=== PATIENT | male | born 1965 | race African-American/Black ===

== ENCOUNTER 2017-11-26 19:20 | Inpatient (IN) | payer OTHER ==
[2017-11-26] MEDS ORDERED: PENDING SANTYL ORDER FOR WOUND CARE XX (20:30)
[2017-11-26] MEDS ORDERED: ACETAMINOPHEN 325 MG TAB PO (22:00)
[2017-11-26] MEDS ORDERED: HYDROCODONE/APAP (5/325) TAB PO (22:00)
[2017-11-26] MEDS ORDERED: hydrALAzine 20 MG INJ IV (22:00)
[2017-11-26] MEDS: GABAPENTIN 300 MG CAP PO (22:34)
[2017-11-26] MEDS: TAMSULOSIN (SR) 0.4 MG CAP PO (22:34)
[2017-11-26] MEDS: ATORVASTATIN 80 MG TAB PO (22:35)
[2017-11-26] MEDS: INSULIN DETEMIR [LEVEMIR] 3ML CART SC (22:49)
[2017-11-26] MEDS: ACCU-CHEK XX (22:50)
[2017-11-26] MEDS: Insulin NOVOLOG SS MODERATE Algorithm (SS with meals and bedtime) SC (22:50)
[2017-11-27] MEDS: ACCUCHECK AT 2AM (Patients on SS coverage) XX (02:00)
[2017-11-27] MEDS ORDERED: MAGNESIUM HYDROXIDE 30ML CUP PO (06:00)
[2017-11-27] MEDS: PANTOPRAZOLE (EC) 40 MG TAB PO (06:39)
[2017-11-27] MEDS: ACCU-CHEK XX ×4 (07:00→22:00)
[2017-11-27 07:41] LABS: ADD UMIC YES; UR ASCORBIC ACID NEGATIVE (NEGATIVE); UR BACTERIA FEW /HPF (NONE SEEN); UR BILIRUBIN (Dip) NEGATIVE (NEGATIVE); UR BLOOD (Dip) NEGATIVE (NEGATIVE); UR CLARITY CLEAR (CLEAR); UR COLOR YELLOW (YELLOW); UR GLUCOSE (Dip) 3+ mg/dL (NEGATIVE); UR KETONES (Dip) NEGATIVE (NEGATIVE); UR LEUKOCYTE ESTERASE (Dip) NEGATIVE Leu/ul (NEGATIVE); UR NITRITE (Dip) NEGATIVE (NEGATIVE); UR RBC 1 /HPF (0-5); UR SPECIFIC GRAVITY (Dip) 1.014 (1.003-1.030); UR TOTAL PROTEIN (Dip) 3+ mg/dl (NEGATIVE); UR UROBILINOGEN (Dip) NEGATIVE (NEGATIVE); UR WBC 5 /HPF (0-5)
[2017-11-27 07:54] LABS: ADD MAN DIFF? NO
[2017-11-27 08:08] LABS: WHITE BLOOD COUNT 8.4 10^3/ul (4.8-10.8)
[2017-11-27 08:08] LABS: BASOPHILS % 0.4 % (0.0-2.0); EOSINOPHILS # 0.4 10^3/ul (0.0-0.5); EOSINOPHILS % 4.4 % (0.0-7.0); HEMATOCRIT 23.7 % (42.0-52.0); LYMPHOCYTES # 2.1 10^3/ul (0.8-2.9); LYMPHOCYTES % 24.7 % (15.0-51.0); MEAN CORPUSCULAR HEMOGLOBIN 28.7 pg (29.0-33.0); MEAN CORPUSCULAR HGB CONC 33.8 g/dl (32.0-37.0); MEAN CORPUSCULAR VOLUME 84.9 fl (82.0-101.0); MEAN PLATELET VOLUME 11.1 fl (7.4-10.4); MONOCYTE # 0.7 10^3/ul (0.3-0.9); MONOCYTES % 8.3 % (0.0-11.0); NEUTROPHIL # 5.2 10^3/ul (1.6-7.5); NEUTROPHILS % 61.7 % (39.0-77.0); PLATELET COUNT 236 10^3/UL (140-415); RED BLOOD COUNT 2.79 10^6/ul (4.70-6.10); RED CELL DISTRIBUTION WIDTH 13.5 % (11.5-14.5)
[2017-11-27 08:34] LABS: ALANINE AMINOTRANSFERASE 23 IU/L (13-69); ALKALINE PHOSPHATASE 67 IU/L (42-121); ANION GAP 16 (8-16); ASPARTATE AMINO TRANSFERASE 13 IU/L (15-46); BILIRUBIN,INDIRECT 0.7 mg/dl (0-1.1); BILIRUBIN,TOTAL 0.7 mg/dl (0.2-1.3); BLOOD UREA NITROGEN 59 mg/dl (7-20); CALCIUM 9.5 mg/dl (8.4-10.2); CARBON DIOXIDE 28 mmol/L (21-31); CHLORIDE 102 mmol/L (97-110); CREATININE 9.77 mg/dl (0.61-1.24); GLUCOSE 235 mg/dl (70-220); POTASSIUM 3.7 mmol/L (3.5-5.1); SODIUM 142 mmol/L (135-144); TOTAL PROTEIN 6.3 g/dl (6.1-8.1)
[2017-11-27] MEDS: LINAGLIPTIN 5 MG TABLET PO (08:40)
[2017-11-27] MEDS: ASPIRIN 81 MG TAB PO (08:41)
[2017-11-27] MEDS: GABAPENTIN 300 MG CAP PO ×3 (08:41→20:57)
[2017-11-27] MEDS: AMLODIPINE 5 MG TAB PO (08:41)
[2017-11-27] MEDS: CLOPIDOGREL 75 MG TAB PO (08:41)
[2017-11-27] MEDS: NOVOLOG PEN INSULIN ASPART (BOLUS with meals) SC ×3 (09:34→19:31)
[2017-11-27] MEDS: Insulin NOVOLOG SS MODERATE Algorithm (SS with meals and bedtime) SC ×4 (09:36→22:04)
[2017-11-27] MEDS: DOCUSATE SODIUM 100 MG CAP PO ×2 (09:37→20:57)
[2017-11-27] MEDS: SENNA TAB PO (20:57)
[2017-11-27] MEDS: TAMSULOSIN (SR) 0.4 MG CAP PO (20:57)
[2017-11-27] MEDS: ATORVASTATIN 80 MG TAB PO (20:57)
[2017-11-27] MEDS: INSULIN DETEMIR [LEVEMIR] 3ML CART SC (22:06)
[2017-11-28] MEDS: ACCUCHECK AT 2AM (Patients on SS coverage) XX (02:00)
[2017-11-28 02:01] LABS: HEPATITIS B SURFACE ANTIGEN NEGATIVE (NEGATIVE)
[2017-11-28 02:21] LABS: HEPATITIS B SURFACE ANTIBODY NEGATIVE (NEGATIVE)
[2017-11-28] MEDS: HEPARIN 1000 UNITS/ML 10 ML INJ CATHETER (02:42)
[2017-11-28] MEDS: PANTOPRAZOLE (EC) 40 MG TAB PO (06:51)
[2017-11-28] MEDS: ACCU-CHEK XX ×4 (07:05→21:24)
[2017-11-28] MEDS: Insulin NOVOLOG SS MODERATE Algorithm (SS with meals and bedtime) SC ×4 (07:35→21:00)
[2017-11-28] MEDS: NOVOLOG PEN INSULIN ASPART (BOLUS with meals) SC ×3 (08:35→17:49)
[2017-11-28] MEDS: GABAPENTIN 300 MG CAP PO ×3 (08:41→21:04)
[2017-11-28] MEDS: AMLODIPINE 5 MG TAB PO (08:41)
[2017-11-28] MEDS: CLOPIDOGREL 75 MG TAB PO (08:43)
[2017-11-28] MEDS: DOCUSATE SODIUM 100 MG CAP PO ×2 (08:43→21:04)
[2017-11-28] MEDS: ASPIRIN 81 MG TAB PO (08:43)
[2017-11-28] MEDS: LINAGLIPTIN 5 MG TABLET PO (08:43)
[2017-11-28] MEDS: INSULIN DETEMIR [LEVEMIR] 3ML CART SC (20:58)
[2017-11-28] MEDS: TAMSULOSIN (SR) 0.4 MG CAP PO (21:04)
[2017-11-28] MEDS: SENNA TAB PO (21:04)
[2017-11-28] MEDS: ATORVASTATIN 80 MG TAB PO (21:05)
[2017-11-29] MEDS: ACCUCHECK AT 2AM (Patients on SS coverage) XX (02:00)
[2017-11-29] MEDS: PANTOPRAZOLE (EC) 40 MG TAB PO (06:21)
[2017-11-29] MEDS: Insulin NOVOLOG SS MODERATE Algorithm (SS with meals and bedtime) SC (07:35)
[2017-11-29] MEDS: ACCU-CHEK XX ×4 (07:56→21:00)
[2017-11-29] MEDS: NOVOLOG PEN INSULIN ASPART (BOLUS with meals) SC (08:00)
[2017-11-29] MEDS: DOCUSATE SODIUM 100 MG CAP PO ×3 (08:01→21:28)
[2017-11-29] MEDS: CLOPIDOGREL 75 MG TAB PO (08:02)
[2017-11-29] MEDS: ASPIRIN 81 MG TAB PO (08:02)
[2017-11-29] MEDS: LINAGLIPTIN 5 MG TABLET PO (08:02)
[2017-11-29] MEDS: GABAPENTIN 300 MG CAP PO ×4 (08:02→21:28)
[2017-11-29] MEDS: AMLODIPINE 5 MG TAB PO (08:59)
[2017-11-29] MEDS ORDERED: GLUCOSE GEL 15 GRAM TUBE BUCCAL (11:00)
[2017-11-29] MEDS ORDERED: GLUCOSE GEL 15 GRAM TUBE PO ×2 (11:00)
[2017-11-29] MEDS ORDERED: DEXTROSE 50% 50 ML SYRINGE IV ×2 (11:00)
[2017-11-29] MEDS ORDERED: GLUCAGON 1 MG INJ IM (11:00)
[2017-11-29] MEDS: INSULIN ASPART [NOVOLOG] 3 ML PEN SC ×8 (12:00→21:00)
[2017-11-29] MEDS ORDERED: INSULIN ASPART [NOVOLOG] 3 ML PEN SC ×2 (12:00)
[2017-11-29 12:22] LABS: HEMOGLOBIN A1C 9.2 % (0-5.9)
[2017-11-29] MEDS: ATORVASTATIN 80 MG TAB PO ×2 (21:00→21:31)
[2017-11-29] MEDS: SENNA TAB PO ×2 (21:00→21:28)
[2017-11-29] MEDS: TAMSULOSIN (SR) 0.4 MG CAP PO ×2 (21:00→21:28)
[2017-11-29] MEDS: HEPARIN 5,000 UNIT/0.5 ML VIAL SC (21:34)
[2017-11-29] MEDS: INSULIN DETEMIR [LEVEMIR] 3ML CART SC (21:37)
[2017-11-30] MEDS ORDERED: ACCU-CHEK XX (02:00)
[2017-11-30] MEDS: ACCUCHECK AT 2AM (Patients on SS coverage) XX (02:00)
[2017-11-30] MEDS: PANTOPRAZOLE (EC) 40 MG TAB PO (06:05)
[2017-11-30] MEDS: ACCU-CHEK XX ×4 (07:05→21:00)
[2017-11-30] MEDS: INSULIN ASPART [NOVOLOG] 3 ML PEN SC ×7 (07:35→21:58)
[2017-11-30] MEDS: HEPARIN 5,000 UNIT/0.5 ML VIAL SC ×2 (08:15→21:59)
[2017-11-30] MEDS: CLOPIDOGREL 75 MG TAB PO (08:16)
[2017-11-30] MEDS: ASPIRIN 81 MG TAB PO (08:17)
[2017-11-30] MEDS: LINAGLIPTIN 5 MG TABLET PO (08:17)
[2017-11-30] MEDS: GABAPENTIN 300 MG CAP PO (08:17)
[2017-11-30] MEDS: DOCUSATE SODIUM 100 MG CAP PO ×2 (08:17→21:48)
[2017-11-30] MEDS: AMLODIPINE 5 MG TAB PO (08:17)
[2017-11-30 09:13] LABS: CHOL/HDL RATIO 7.1 RATIO; HDL CHOLESTEROL 29 mg/dl (28-71); LDL CHOLESTEROL,CALCULATED 145 mg/dl; TRIGLYCERIDES 171 mg/dl (0-149)
[2017-11-30 09:13] LABS: CHOLESTEROL 208 mg/dl (100-200)
[2017-11-30 09:16] LABS: ANION GAP 21 (8-16); BLOOD UREA NITROGEN 79 mg/dl (7-20); CALCIUM 10.7 mg/dl (8.4-10.2); CARBON DIOXIDE 24 mmol/L (21-31); CHLORIDE 102 mmol/L (97-110); CREATININE 10.54 mg/dl (0.61-1.24); GLUCOSE 110 mg/dl (70-220); POTASSIUM 4.5 mmol/L (3.5-5.1); SODIUM 142 mmol/L (135-144)
[2017-11-30 09:18] LABS: PHOSPHORUS 8.6 mg/dl (2.5-4.9)
[2017-11-30 09:18] LABS: MAGNESIUM 2.1 mg/dl (1.7-2.5)
[2017-11-30 10:28] LABS: HEMOGLOBIN A1C 9.2 % (0-5.9)
[2017-11-30] MEDS ORDERED: HYDROCODONE/APAP (5/325) TAB PO (14:00)
[2017-11-30] MEDS: ALBUMIN HUMAN 25% 100 ML IV (18:42)
[2017-11-30] MEDS ORDERED: GABAPENTIN 100 MG CAP PO (21:00)
[2017-11-30] MEDS: SENNA TAB PO (21:48)
[2017-11-30] MEDS: TAMSULOSIN (SR) 0.4 MG CAP PO (21:48)
[2017-11-30] MEDS: ATORVASTATIN 80 MG TAB PO (21:48)
[2017-11-30] MEDS: INSULIN DETEMIR [LEVEMIR] 3ML CART SC (21:59)
[2017-12-01] MEDS: ACCUCHECK AT 2AM (Patients on SS coverage) XX (02:00)
[2017-12-01] MEDS: PANTOPRAZOLE (EC) 40 MG TAB PO (06:32)
[2017-12-01 06:33] LABS: ADD MAN DIFF? NO
[2017-12-01 06:42] LABS: WHITE BLOOD COUNT 7.2 10^3/ul (4.8-10.8)
[2017-12-01 06:42] LABS: BASOPHILS % 0.6 % (0.0-2.0); EOSINOPHILS # 0.3 10^3/ul (0.0-0.5); EOSINOPHILS % 4.7 % (0.0-7.0); HEMATOCRIT 21.5 % (42.0-52.0); HEMOGLOBIN 7.2 g/dl (14.0-18.0); LYMPHOCYTES # 1.5 10^3/ul (0.8-2.9); LYMPHOCYTES % 20.7 % (15.0-51.0); MEAN CORPUSCULAR HEMOGLOBIN 28.9 pg (29.0-33.0); MEAN CORPUSCULAR HGB CONC 33.5 g/dl (32.0-37.0); MEAN CORPUSCULAR VOLUME 86.3 fl (82.0-101.0); MEAN PLATELET VOLUME 10.9 fl (7.4-10.4); MONOCYTE # 0.6 10^3/ul (0.3-0.9); MONOCYTES % 8.9 % (0.0-11.0); NEUTROPHIL # 4.7 10^3/ul (1.6-7.5); NEUTROPHILS % 64.8 % (39.0-77.0); PLATELET COUNT 247 10^3/UL (140-415); RED BLOOD COUNT 2.49 10^6/ul (4.70-6.10); RED CELL DISTRIBUTION WIDTH 14.2 % (11.5-14.5)
[2017-12-01] MEDS: ACCU-CHEK XX ×4 (07:05→21:01)
[2017-12-01 07:17] LABS: ANION GAP 14 (8-16); BLOOD UREA NITROGEN 54 mg/dl (7-20); CALCIUM 9.8 mg/dl (8.4-10.2); CARBON DIOXIDE 29 mmol/L (21-31); CHLORIDE 103 mmol/L (97-110); GLUCOSE 142 mg/dl (70-220); POTASSIUM 4.3 mmol/L (3.5-5.1); SODIUM 142 mmol/L (135-144)
[2017-12-01 07:19] LABS: MAGNESIUM 1.9 mg/dl (1.7-2.5)
[2017-12-01 07:19] LABS: PHOSPHORUS 6.7 mg/dl (2.5-4.9)
[2017-12-01] MEDS: INSULIN ASPART [NOVOLOG] 3 ML PEN SC ×7 (08:44→21:00)
[2017-12-01] MEDS: HEPARIN 5,000 UNIT/0.5 ML VIAL SC ×2 (09:45→21:00)
[2017-12-01] MEDS: DOCUSATE SODIUM 100 MG CAP PO ×2 (09:46→20:42)
[2017-12-01] MEDS: LINAGLIPTIN 5 MG TABLET PO (09:46)
[2017-12-01] MEDS: ASPIRIN 81 MG TAB PO (09:47)
[2017-12-01] MEDS: AMLODIPINE 5 MG TAB PO (09:47)
[2017-12-01] MEDS: CLOPIDOGREL 75 MG TAB PO (09:48)
[2017-12-01 11:22] LABS: IRON 37 ug/dl (35-150)
[2017-12-01 11:31] LABS: % IRON SATURATION 19 % SAT (22-52); TOTAL IRON BINDING CAPACITY 191 ug/dl (241-421)
[2017-12-01] MEDS: EPOETIN 4000 UNITS/1 ML INJ (ESRD) SC (16:51)
[2017-12-01] MEDS: SENNA TAB PO (20:42)
[2017-12-01] MEDS: TAMSULOSIN (SR) 0.4 MG CAP PO (20:42)
[2017-12-01] MEDS: ATORVASTATIN 80 MG TAB PO (20:44)
[2017-12-01] MEDS: INSULIN DETEMIR [LEVEMIR] 3ML CART SC (20:59)
[2017-12-02] MEDS: ACCUCHECK AT 2AM (Patients on SS coverage) XX (02:00)
[2017-12-02] MEDS: PANTOPRAZOLE (EC) 40 MG TAB PO (06:30)
[2017-12-02] MEDS: ACCU-CHEK XX ×4 (07:05→21:00)
[2017-12-02] MEDS: INSULIN ASPART [NOVOLOG] 3 ML PEN SC ×7 (07:35→23:00)
[2017-12-02] MEDS: ASPIRIN 81 MG TAB PO (08:07)
[2017-12-02] MEDS: HEPARIN 5,000 UNIT/0.5 ML VIAL SC ×2 (09:00→23:38)
[2017-12-02] MEDS: LINAGLIPTIN 5 MG TABLET PO (09:00)
[2017-12-02] MEDS: DOCUSATE SODIUM 100 MG CAP PO ×2 (09:00→23:21)
[2017-12-02] MEDS: AMLODIPINE 5 MG TAB PO (09:00)
[2017-12-02] MEDS: CLOPIDOGREL 75 MG TAB PO ×2 (09:00→13:04)
[2017-12-02] MEDS: ALBUMIN HUMAN 25% 100 ML IV (19:50)
[2017-12-02] MEDS: HEPARIN 1000 UNITS/ML 10 ML INJ CATHETER (22:38)
[2017-12-02] MEDS: ATORVASTATIN 80 MG TAB PO (23:21)
[2017-12-02] MEDS: SENNA TAB PO (23:21)
[2017-12-02] MEDS: TAMSULOSIN (SR) 0.4 MG CAP PO (23:21)
[2017-12-02] MEDS: INSULIN DETEMIR [LEVEMIR] 3ML CART SC (23:27)
[2017-12-02] MEDS: EPOETIN 4000 UNITS/1 ML INJ (ESRD) SC (23:40)
[2017-12-03] MEDS: ACCUCHECK AT 2AM (Patients on SS coverage) XX (02:00)
[2017-12-03] MEDS: PANTOPRAZOLE (EC) 40 MG TAB PO (07:00)
[2017-12-03] MEDS: ACCU-CHEK XX ×4 (07:05→22:15)
[2017-12-03] MEDS: INSULIN ASPART [NOVOLOG] 3 ML PEN SC ×8 (08:19→22:15)
[2017-12-03] MEDS: CLOPIDOGREL 75 MG TAB PO (08:36)
[2017-12-03] MEDS: ASPIRIN 81 MG TAB PO (08:37)
[2017-12-03] MEDS: LINAGLIPTIN 5 MG TABLET PO (08:39)
[2017-12-03] MEDS: DOCUSATE SODIUM 100 MG CAP PO ×2 (08:39→21:00)
[2017-12-03] MEDS: AMLODIPINE 5 MG TAB PO (08:39)
[2017-12-03] MEDS: HEPARIN 5,000 UNIT/0.5 ML VIAL SC ×2 (08:40→21:00)
[2017-12-03] MEDS: SENNA TAB PO (21:00)
[2017-12-03] MEDS: ATORVASTATIN 80 MG TAB PO (21:00)
[2017-12-03] MEDS: TAMSULOSIN (SR) 0.4 MG CAP PO (21:00)
[2017-12-03] MEDS: INSULIN DETEMIR [LEVEMIR] 3ML CART SC (22:15)
[2017-12-04] MEDS: ACCUCHECK AT 2AM (Patients on SS coverage) XX (02:00)
[2017-12-04] MEDS: INSULIN ASPART [NOVOLOG] 3 ML PEN SC ×7 (07:35→22:43)
[2017-12-04] MEDS: ACCU-CHEK XX (07:50)
[2017-12-04] MEDS: PANTOPRAZOLE (EC) 40 MG TAB PO (07:55)
[2017-12-04] MEDS: ASPIRIN 81 MG TAB PO (07:55)
[2017-12-04] MEDS: DOCUSATE SODIUM 100 MG CAP PO ×2 (08:29→22:43)
[2017-12-04] MEDS: LINAGLIPTIN 5 MG TABLET PO (08:29)
[2017-12-04] MEDS: AMLODIPINE 5 MG TAB PO (08:29)
[2017-12-04] MEDS: CLOPIDOGREL 75 MG TAB PO (08:30)
[2017-12-04] MEDS: HEPARIN 5,000 UNIT/0.5 ML VIAL SC ×2 (08:39→22:43)
[2017-12-04] MEDS: EPOETIN 4000 UNITS/1 ML INJ (ESRD) SC (17:47)
[2017-12-04] MEDS: HEPARIN 1000 UNITS/ML 10 ML INJ CATHETER (22:08)
[2017-12-04] MEDS: TAMSULOSIN (SR) 0.4 MG CAP PO (22:43)
[2017-12-04] MEDS: SENNA TAB PO (22:43)
[2017-12-04] MEDS: ATORVASTATIN 80 MG TAB PO (22:43)
[2017-12-04] MEDS: INSULIN DETEMIR [LEVEMIR] 3ML CART SC (22:43)
[2017-12-05] MEDS: PANTOPRAZOLE (EC) 40 MG TAB PO (07:00)
[2017-12-05] MEDS: INSULIN ASPART [NOVOLOG] 3 ML PEN SC ×7 (07:35→20:21)
[2017-12-05] MEDS: DOCUSATE SODIUM 100 MG CAP PO ×2 (08:58→20:21)
[2017-12-05] MEDS: ASPIRIN 81 MG TAB PO (08:58)
[2017-12-05] MEDS: AMLODIPINE 5 MG TAB PO (08:58)
[2017-12-05] MEDS: LINAGLIPTIN 5 MG TABLET PO (08:59)
[2017-12-05] MEDS: CLOPIDOGREL 75 MG TAB PO (08:59)
[2017-12-05] MEDS: HEPARIN 5,000 UNIT/0.5 ML VIAL SC ×2 (08:59→20:30)
[2017-12-05] MEDS: SENNA TAB PO (20:21)
[2017-12-05] MEDS: ATORVASTATIN 80 MG TAB PO (20:24)
[2017-12-05] MEDS: TAMSULOSIN (SR) 0.4 MG CAP PO (20:24)
[2017-12-05] MEDS: INSULIN DETEMIR [LEVEMIR] 3ML CART SC (20:31)
[2017-12-06] MEDS: PANTOPRAZOLE (EC) 40 MG TAB PO (06:18)
[2017-12-06 07:17] LABS: ADD MAN DIFF? NO
[2017-12-06 07:22] LABS: BASOPHILS % 0.5 % (0.0-2.0); EOSINOPHILS # 0.4 10^3/ul (0.0-0.5); EOSINOPHILS % 5.4 % (0.0-7.0); HEMATOCRIT 21.4 % (42.0-52.0); HEMOGLOBIN 7.2 g/dl (14.0-18.0); LYMPHOCYTES # 1.6 10^3/ul (0.8-2.9); LYMPHOCYTES % 20.3 % (15.0-51.0); MEAN CORPUSCULAR HEMOGLOBIN 28.5 pg (29.0-33.0); MEAN CORPUSCULAR HGB CONC 33.6 g/dl (32.0-37.0); MEAN CORPUSCULAR VOLUME 84.6 fl (82.0-101.0); MEAN PLATELET VOLUME 10.8 fl (7.4-10.4); MONOCYTE # 0.9 10^3/ul (0.3-0.9); MONOCYTES % 11.2 % (0.0-11.0); NEUTROPHIL # 4.8 10^3/ul (1.6-7.5); NEUTROPHILS % 62.3 % (39.0-77.0); PLATELET COUNT 297 10^3/UL (140-415); RED BLOOD COUNT 2.53 10^6/ul (4.70-6.10); RED CELL DISTRIBUTION WIDTH 13.6 % (11.5-14.5)
[2017-12-06 07:22] LABS: WHITE BLOOD COUNT 7.7 10^3/ul (4.8-10.8)
[2017-12-06] MEDS: INSULIN ASPART [NOVOLOG] 3 ML PEN SC ×7 (07:35→21:00)
[2017-12-06] MEDS: ASPIRIN 81 MG TAB PO ×2 (07:35→13:50)
[2017-12-06 07:47] LABS: PHOSPHORUS 6.9 mg/dl (2.5-4.9)
[2017-12-06 07:47] LABS: ANION GAP 17 (8-16); BLOOD UREA NITROGEN 47 mg/dl (7-20); CALCIUM 10.3 mg/dl (8.4-10.2); CARBON DIOXIDE 26 mmol/L (21-31); CHLORIDE 102 mmol/L (97-110); CREATININE 8.33 mg/dl (0.61-1.24); GLUCOSE 112 mg/dl (70-220); MAGNESIUM 1.9 mg/dl (1.7-2.5); POTASSIUM 3.9 mmol/L (3.5-5.1); SODIUM 141 mmol/L (135-144)
[2017-12-06] MEDS: CLOPIDOGREL 75 MG TAB PO ×2 (09:00→13:46)
[2017-12-06] MEDS: AMLODIPINE 5 MG TAB PO ×2 (09:00→13:53)
[2017-12-06] MEDS: LINAGLIPTIN 5 MG TABLET PO (09:00)
[2017-12-06] MEDS: HEPARIN 5,000 UNIT/0.5 ML VIAL SC ×2 (09:00→21:25)
[2017-12-06] MEDS: DOCUSATE SODIUM 100 MG CAP PO ×2 (09:00→21:00)
[2017-12-06] MEDS: SENNA TAB PO (21:00)
[2017-12-06] MEDS: ATORVASTATIN 80 MG TAB PO (21:04)
[2017-12-06] MEDS: TAMSULOSIN (SR) 0.4 MG CAP PO (21:05)
[2017-12-06] MEDS: INSULIN DETEMIR [LEVEMIR] 3ML CART SC (21:25)
[2017-12-07] MEDS: PANTOPRAZOLE (EC) 40 MG TAB PO (06:28)
[2017-12-07] MEDS: INSULIN ASPART [NOVOLOG] 3 ML PEN SC ×7 (07:35→20:59)
[2017-12-07] MEDS: ASPIRIN 81 MG TAB PO (08:56)
[2017-12-07] MEDS: LINAGLIPTIN 5 MG TABLET PO (08:57)
[2017-12-07] MEDS: DOCUSATE SODIUM 100 MG CAP PO ×2 (08:57→20:45)
[2017-12-07] MEDS: AMLODIPINE 5 MG TAB PO (08:57)
[2017-12-07] MEDS: CLOPIDOGREL 75 MG TAB PO (08:57)
[2017-12-07] MEDS: HEPARIN 5,000 UNIT/0.5 ML VIAL SC ×2 (09:00→20:59)
[2017-12-07] MEDS: EPOETIN 4000 UNITS/1 ML INJ (ESRD) SC (17:43)
[2017-12-07] MEDS: HEPARIN 1000 UNITS/ML 10 ML INJ CATHETER (18:47)
[2017-12-07] MEDS: INSULIN DETEMIR [LEVEMIR] 3ML CART SC (20:00)
[2017-12-07] MEDS: TAMSULOSIN (SR) 0.4 MG CAP PO (20:45)
[2017-12-07] MEDS: ATORVASTATIN 80 MG TAB PO (20:45)
[2017-12-07] MEDS: SENNA TAB PO (20:45)
[2017-12-08] MEDS: PANTOPRAZOLE (EC) 40 MG TAB PO (06:56)
[2017-12-08] MEDS: INSULIN ASPART [NOVOLOG] 3 ML PEN SC ×2 (07:35)
[2017-12-08] MEDS: ASPIRIN 81 MG TAB PO (08:23)
[2017-12-08] MEDS: HEPARIN 5,000 UNIT/0.5 ML VIAL SC (09:00)
[2017-12-08] MEDS: LINAGLIPTIN 5 MG TABLET PO (09:00)
[2017-12-08] MEDS: DOCUSATE SODIUM 100 MG CAP PO (09:00)
[2017-12-08] MEDS: CLOPIDOGREL 75 MG TAB PO (09:00)
[2017-12-08] MEDS: AMLODIPINE 5 MG TAB PO (09:00)
== END 2017-12-08 10:06 | disposition home health service (06) | DRG 56 ==
LOC: VRC 11-30 13:52
PROC: 5A1D70Z Performance of Urinary Filtration, Intermittent, Less than 6 Hours Per Day (ICD-10-PCS; principal; 2017-11-27)
DX: I69.951 Hemiplegia and hemiparesis following unspecified cerebrovascular disease affecting right dominant side (principal); N18.6 End stage renal disease; E11.40 Type 2 diabetes mellitus with diabetic neuropathy, unspecified; I12.0 Hypertensive chronic kidney disease with stage 5 chronic kidney disease or end stage renal disease; E11.65 Type 2 diabetes mellitus with hyperglycemia; I10 Essential (primary) hypertension; Z79.4 Long term (current) use of insulin; Z99.2 Dependence on renal dialysis; E78.5 Hyperlipidemia, unspecified; N40.0 Benign prostatic hyperplasia without lower urinary tract symptoms; I16.0 Hypertensive urgency; D64.9 Anemia, unspecified; R06.83 Snoring; F06.31 Mood disorder due to known physiological condition with depressive features; M25.551 Pain in right hip
CPT/HCPCS: 70450; 73510; 80048; 80053; 80061; 81001; 82728; 82962; 83036; 83540; 83735; 84100; 85025; 86706; 87081; 87086; 87340; 90935; 92507; 92523; 92610; 97110; 97112; 97150; 97163; 97166; 97530; 97535; 97542

== ENCOUNTER 2019-01-16 13:06 | Observation (INO) | payer OTHER ==
[2019-01-16] MEDS: NITROGLYCERIN (SL) 0.4 MG TAB SL (15:30)
[2019-01-16] MEDS: ASPIRIN 81 MG TAB PO (15:31)
[2019-01-16] MEDS: NITROGLYCERIN 2% 1 GM OINT PKT TD (15:31)
[2019-01-16 15:45] LABS: WHITE BLOOD COUNT 4.8 10^3/ul (4.8-10.8)
[2019-01-16 15:45] LABS: HEMATOCRIT 35.2 % (42.0-52.0); MEAN CORPUSCULAR HEMOGLOBIN 29.2 pg (29.0-33.0); MEAN CORPUSCULAR HGB CONC 34.1 g/dl (32.0-37.0); MEAN CORPUSCULAR VOLUME 85.6 fl (82.0-101.0); MEAN PLATELET VOLUME 10.1 fl (7.4-10.4); PLATELET COUNT 213 10^3/UL (140-415); RED BLOOD COUNT 4.11 10^6/ul (4.70-6.10); RED CELL DISTRIBUTION WIDTH 14.9 % (11.5-14.5)
[2019-01-16 15:46] LABS: ADD MAN DIFF? YES
[2019-01-16 16:07] LABS: ANION GAP 17 (5-13); BLOOD UREA NITROGEN 58 mg/dl (7-20); CALCIUM 10.1 mg/dl (8.4-10.2); CARBON DIOXIDE 26 mmol/L (21-31); CHLORIDE 95 mmol/L (97-110); CREATINE KINASE 131 IU/L (23-200); Estimated GFR 6 mL/min (>60); GLUCOSE 113 mg/dl (70-220); POTASSIUM 4.4 mmol/L (3.5-5.1); SODIUM 138 mmol/L (135-144)
[2019-01-16 16:19] LABS: TROPONIN-I 0.111 ng/ml (0.000-0.120); TROPONIN-I 0.117 ng/ml (0.000-0.120)
[2019-01-16 16:24] LABS: CK-MB 2.64 ng/ml (0.0-2.4)
[2019-01-16] MEDS ORDERED: ACETAMINOPHEN 325 MG TAB PO (17:30)
[2019-01-16] MEDS ORDERED: ONDANSETRON 4 MG INJ IV (17:30)
[2019-01-16] MEDS ORDERED: hydrALAzine 20 MG INJ IV (21:00)
[2019-01-16] MEDS: ATORVASTATIN 80 MG TAB PO (21:27)
[2019-01-16] MEDS: GABAPENTIN 400 MG CAP PO (21:27)
[2019-01-16] MEDS: AMLODIPINE 5 MG TAB PO (21:28)
[2019-01-16] MEDS: TAMSULOSIN (SR) 0.4 MG CAP PO (21:28)
[2019-01-16] MEDS ORDERED: GLUCOSE GEL 15 GRAM TUBE BUCCAL (21:30)
[2019-01-16] MEDS ORDERED: GLUCOSE GEL 15 GRAM TUBE PO ×2 (21:30)
[2019-01-16] MEDS ORDERED: DEXTROSE 50% 50 ML SYRINGE IV ×2 (21:30)
[2019-01-16] MEDS ORDERED: GLUCAGON 1 MG INJ IM (21:30)
[2019-01-17 02:04] LABS: TROPONIN-I 0.097 ng/ml (0.000-0.120)
[2019-01-17] MEDS: PANTOPRAZOLE (EC) 40 MG TAB PO (06:16)
[2019-01-17] MEDS: FUROSEMIDE 20 MG TAB PO (06:17)
[2019-01-17 06:41] LABS: CREATINE KINASE 114 IU/L (23-200)
[2019-01-17 06:48] LABS: ALBUMIN 3.4 g/dl (3.3-4.9); ANION GAP 14 (5-13); BLOOD UREA NITROGEN 69 mg/dl (7-20); CALCIUM 9.7 mg/dl (8.4-10.2); CARBON DIOXIDE 26 mmol/L (21-31); CHLORIDE 98 mmol/L (97-110); CHOL/HDL RATIO 4.3 RATIO; CHOLESTEROL 118 mg/dl (100-200); CREATININE 11.41 mg/dl (0.61-1.24); GLUCOSE 109 mg/dl (70-220); HDL CHOLESTEROL 27 mg/dl (28-71); LDL CHOLESTEROL,CALCULATED 70 mg/dl; PHOSPHORUS 8.7 mg/dl (2.5-4.9); POTASSIUM 4.8 mmol/L (3.5-5.1); SODIUM 138 mmol/L (135-144); TRIGLYCERIDES 106 mg/dl (0-149)
[2019-01-17 06:53] LABS: CK INDEX 1.8; CK-MB 2.08 ng/ml (0.0-2.4); TROPONIN-I 0.084 ng/ml (0.000-0.120)
[2019-01-17] MEDS: INSULIN ASPART [NOVOLOG] 3 ML PEN SC ×3 (07:50→17:57)
[2019-01-17] MEDS: AMLODIPINE 5 MG TAB PO (09:00)
[2019-01-17] MEDS: GABAPENTIN 400 MG CAP PO ×3 (09:00→21:45)
[2019-01-17] MEDS: REGADENOSON 0.4 MG/5 ML SYG (12:45)
[2019-01-17] MEDS: CLOPIDOGREL 75 MG TAB PO (16:18)
[2019-01-17 20:35] LABS: HEPATITIS B SURFACE ANTIGEN NEGATIVE (NEGATIVE)
[2019-01-17 21:29] LABS: HEPATITIS B SURFACE ANTIBODY POSITIVE (NEGATIVE)
[2019-01-17] MEDS: ATORVASTATIN 80 MG TAB PO (21:45)
[2019-01-17] MEDS: TAMSULOSIN (SR) 0.4 MG CAP PO (21:45)
== END 2019-01-18 01:00 | disposition home or self-care (01) ==
LOC: 6WM 01-17 21:18 → E/R 13:06 → 6WM 17:17
DX: R07.9 Chest pain, unspecified (principal); E11.22 Type 2 diabetes mellitus with diabetic chronic kidney disease; I12.0 Hypertensive chronic kidney disease with stage 5 chronic kidney disease or end stage renal disease; N18.6 End stage renal disease; E78.5 Hyperlipidemia, unspecified; N40.0 Benign prostatic hyperplasia without lower urinary tract symptoms; Z99.2 Dependence on renal dialysis; R06.02 Shortness of breath; Z79.4 Long term (current) use of insulin; R53.1 Weakness; I63.89 Other cerebral infarction
CPT/HCPCS: 36415; 70551; 71045; 78452; 80048; 80061; 80069; 82550; 82553; 82962; 84484; 85025; 86706; 87340; 90935; 93005; 93017; 93306; 99285-25; G0378